=== PATIENT | female | born 1985 | race American Indian/Alaskan Native ===

== ENCOUNTER 2019-05-03 00:10 | Emergency (ER) | payer SELFPAY ==
[2019-05-03 02:08] LABS: Bilirubin,Urine NEG (Negative); Blood,Urine NEG (Negative); Color,Urine Yellow (Yellow); Mucus,Urine FEW /HPF; Protein,Urine <15 mg/dL mg/dL (Negative); Urobilinogen,Urine < 2.0 mg/dL (<2.0); WBC,Urine < 1.0 /HPF (0.0-6.0)
--- NOTE | 2019-05-03 02:18 | Emergency Department Report ---
ED Female HPI - General Chief complaint: Urogenital-Female Stated complaint: ABD/VAGINAL PAIN Time Seen by Provider: 05/03/19 01:48 Source: patient, family Mode of arrival: Ambulatory Limitations: No Limitations - History of Present Illness Initial comments: She did complain of intermittent abdominal pain which she is not having at present. She says she has been having vaginal irritation and discharge 2 months. She says she thinks she might have BV. She says she has a history of ovarian cyst. Pain is located to lower pelvic area and 2 out of 10 when it is there. Pain is sharp. Denies any nausea or vomiting. Denies any vaginal bleeding. Last menstrual period was 04/23 2019. Patient has a history of appendectomy. Denies any fever or chills or any urinary burning, frequency or urgency. MD Complaint: vaginal discharge, pelvic pain Onset/Timin -: month(s) Location: suprapubic Radiation: non-radiating Severity: mild Severity scale (0 -10): 2 Quality: sharp Consistency: intermittent Are you Now?: No Associated Symptoms: vaginal discharge, abdominal pain. denies: vaginal bleeding, nausea/vomiting, fever/chills, headaches, loss of appetite, dysuria, hematuria, rash, seizure, shortness of breath, syncope, weakness - Related Data Sexually active: Yes Previous Rx's Medication Instructions Recorded Last Taken Type metroNIDAZOLE [Flagyl] 500 mg PO Q12HR 7 Days #14 tab 05/03/19 Unknown Rx Allergies Allergy/AdvReac Type Severity Reaction Status Date / Time No Known Allergies Allergy Unverified 05/03/19 00:17 ED Review of Systems ROS: Stated complaint: ABD/VAGINAL PAIN Other details as noted in HPI Constitutional: denies: chills, fever ENT: denies: throat pain, congestion Respiratory: denies: cough, shortness of breath, wheezing Cardiovascular: denies: chest pain, palpitations, edema, syncope Gastrointestinal: denies: abdominal pain, nausea, vomiting, hematochezia Genitourinary: discharge. denies: urgency, dysuria, frequency, hematuria, abnormal menses, dyspareunia Musculoskeletal: denies: back pain, joint swelling, arthralgia Skin: denies: rash Neurological: denies: headache ED Past Medical Hx - Past Medical History Previous Medical History?: No - Surgical History Past Surgical History?: Yes Hx Appendectomy: Yes - Family History Family history: hypertension - Social History Smoking Status: Never Smoker Substance Use Type: None - Medications Home Medications: Home Medications Medication Instructions Recorded Confirmed Last Taken Type metroNIDAZOLE [Flagyl] 500 mg PO Q12HR 7 Days #14 tab 05/03/19 Unknown Rx ED Physical Exam - General Limitations: No Limitations General appearance: alert, in no apparent distress - Head Head exam: Present: atraumatic - Eye Eye exam: Present: normal appearance, PERRL, EOMI - ENT ENT exam: Present: normal exam, normal orophraynx - Neck Neck exam: Present: normal inspection, full ROM. Absent: tenderness - Respiratory Respiratory exam: Present: normal lung sounds bilaterally. Absent: respiratory distress, chest wall tenderness - Cardiovascular Cardiovascular Exam: Present: regular rate, normal rhythm, normal heart sounds - GI/Abdominal GI/Abdominal exam: Present: soft, normal bowel sounds. Absent: distended, tenderness - External exam: Present: normal external exam Speculum exam: Present: vaginal discharge, cervical discharge. Absent: erythema, vaginal bleeding, foreign body, tissue, laceration Bi-manual exam: Present: normal bi-manual exam - Extremities Exam Extremities exam: Present: normal inspection, full ROM, normal capillary refill, other (No cce. + 2 pulses in all extremities, no neurovascular compromise). Absent: tenderness, pedal edema, joint swelling - Back Exam Back exam: Present: normal inspection, full ROM. Absent: CVA tenderness (R), CVA tenderness (L) - Neurological Exam Neurological exam: Present: alert, oriented X3, normal gait - Psychiatric Psychiatric exam: Present: normal affect, normal mood - Skin Skin exam: Present: warm, dry, intact, normal color. Absent: rash ED Course Vital Signs 05/03/19 00:13 Temperature 98.8 F Pulse Rate 86 Respiratory 12 Rate Blood Pressure 109/54 O2 Sat by Pulse 100 Oximetry - Reevaluation(s) Reevaluation #1: 05/03/19 04:12 Patient stable in no acute distress. Wet prep shows that she has bacterial vaginosis. Gonorrhea and chlamydia is pending. She wants to be treated empirically for gonorrhea and chlamydia ED Medical Decision Making - Medical Decision Making This is a 33-year-old female here for vaginal discharge and irritation that has been ongoing for a couple months with intermittent pelvic pain. Patient found to have bacterial vaginosis. Negative Trichomonas and negative he states. Gonorrhea and chlamydia is pending but she wants to be treated empirically for gonorrhea and chlamydia so she was given Rocephin and azithromycin and discharged home on Flagyl. Patient stable in no acute distress and no pain at present. Critical care attestation.: If time is entered above; I have spent that time in minutes in the direct care of this critically ill patient, excluding procedure time. ED Disposition Clinical Impression: Bacterial vaginosis, Vaginal discharge Disposition: TO HOME OR SELFCARE Is pt being admited?: No Does the pt Need Aspirin: No Condition: Stable Instructions: Bacterial Vaginosis (ED), Safe Sex (ED) Additional Instructions: Please avoid drinking all call while taking Flagyl of this medication can cause nausea when taking with all call. Follow up with your [facility] in 7 days for repeat STD testing and urinalysis. Refrain from having sexual activity for the next 14 days Prescriptions: metroNIDAZOLE [Flagyl] 500 mg PO Q12HR 7 Days #14 tab Referrals: QUYEN ALATORRE MD [Staff Physician] - 05/09/19 Forms: STI Treatment and Prevention, Work/School Release Form(ED)
[2019-05-03 02:32] LABS: HCG Qualitative,Urine Negative (Negative)
[2019-05-03] MEDS ORDERED: LIDOCAINE-MPF (1%) 10 MG/1 ML VIAL 5 ML INFILTRATI ONE (04:22)
[2019-05-03] MEDS ORDERED: AZITHROMYCIN 250 MG TAB PO ONE (04:22)
[2019-05-03 04:48] VITALS: BP 112/67
== END 2019-05-03 05:38 | disposition home or self-care (01) ==
LOC: ED 00:10
DX: N76.0 Acute vaginitis (principal); B96.89 Other specified bacterial agents as the cause of diseases classified elsewhere; Z90.89 Acquired absence of other organs; Z79.899 Other long term (current) drug therapy
CPT/HCPCS: 81001; 81025; 87210; 87591; 96372; 99284; J0696